=== PATIENT | male | born 1995 | race Caucasian/White ===

== ENCOUNTER 2024-03-19 23:13 | Emergency (ER) | payer SELFPAY ==
[2024-03-19 23:14] VITALS: BP 107/80; PULSE 79; RESP 18; TEMP 36.6; O2SAT 100; BMI 28.8
--- NOTE | 2024-03-19 23:38 | EDS_ITS ---
HPI History of Present Illness Chief Complaint: Complaint Informant: patient Narrative Narrative: Presents by EMS from home concerns for numbness and burning when he urinates. He states walking with mom at 5 PM outside 30 degree weather he felt paresthesias around his penis that time. He has been moderate. He took a shower. Urinated again and felt some numbness again. Denies penile discharge. Sexually active with fianc?. He states he has been screened for STIs it has been negative. Also intermittent gastritis symptoms seen by GI back in [place] he is on Pepcid. No black or bloody stools. Denies fevers. Prior similar symptoms: No PFSH PFSH Home Medications ?Medication ?Instructions ?Recorded ?Last Taken ?Type famotidine 20 mg tablet (Acid 20 mg PO BID 03/19/24 Unknown History Controller) phenazopyridine 200 mg tablet 200 mg PO TID #10 tabs 03/20/24 Unknown Rx (Pyridium) Allergy/AdvReac Type Severity Reaction Status Date / Time meloxicam Allergy Mild OTHER Verified 03/19/24 23:14 Social History Smoking Status: Current every day smoker tobacco type: cigars ROS ROS ED Constitutional Constitutional ED: Denies chills, fever(s) or sweats ENT ENT ED: Denies sore throat Cardiovascular Cardiovascular: Denies chest pain, leg edema, palpitations or racing heartbeat Respiratory/Chest Respiratory/Chest: Denies cough, dyspnea or dyspnea on exertion Gastrointestinal Gastrointestinal: Denies abdominal pain, diarrhea, nausea or vomiting Genitourinary Genitourinary ED: Reports dysuria and other Details: Denies penile discharge ; Denies hematuria or urinary frequency Musculoskeletal Musculoskeletal: Denies back pain, extremity pain or neck pain Integumentary Denies rash or wounds Neurologic Neurologic: Denies headache(s), paresthesias or weakness EXAM Physical Exam Const Vital Signs: 03/19/24 23:14 Temperature 97.9 F Temperature Source Temporal Pulse Rate 79 Respiratory Rate 18 Blood Pressure 107/80 Blood Pressure Mean 89 Pulse Ox 100 Oxygen Delivery Method Room Air Positive well nourished and well developed General Appearance ED: well developed and NAD HEENT Reports moist mucous membranes normocephalic and atraumatic Eyes General Eye ED: Yes normal appearance of both eyes Neck full ROM Chest Wall Chest: Negative for tenderness Resp normal respiratory effort and normal air movement Effort and Inspection: symmetric chest movement; Negative for respiratory distress Cardio regular rate, regular rhythm and no murmurs Peripheral Pulses: pulses 2+ throughout GI normal to inspection, nondistended, normoactive bowel sounds and non-tender Palpation: Negative for guarding or rebound tenderness present Narrative: No scrotal swelling or pain. No penile lesions. No discharge. Normal penile shaft no lesions no changes in color. Nontender. Extremity normal to inspection General Extremety ED: Negative for edema or tenderness General Extremity: Negative for edema Neuro oriented x3 and no sensory deficits noted Sensorium / Orientation: awake and alert Skin no rashes or lesions noted and no wounds MDM MDM MDM Narrative Medical decision making narrative: Interventions / MDM: Differential diagnosis: Urethritis, dysuria, hematuria Diagnosis considered but do not suspect: UTI however urine negative. STI however GC chlamydia negative. My EKG interpretation: N/A Imaging independently reviewed and interpreted by myself: N/A External documents reviewed: N/A Test considered but not ordered:N/A ED course: Nontoxic, no structural abnormalities on exam. Urine sent for UA and GC chlamydia with his symptoms. Urine with slight hematuria, no infection. GC chlamydia negative. Discussed results with the patient. He does have tobacco history. Discussed cancer and differential however young and there is no significant RBCs. He is referred to the PCP and urology as an outpatient. He started on Pyridium. All questions were answered. Re-evaluation: stable Disposition discussed with patient/family/significant other: Patient Case discussed with consulting clinician: N/A This note was generated with [employer] dictation software. It may contain incorrect words, spelling, and punctuation that were not noted in checking the note before signing. Lab Data Attestation: I reviewed the patient's lab results. Labs: Laboratory Results - last 24 hr 03/19/24 23:25 Urine Color Yellow Urine Clarity Clear Urine pH 6.5 Ur Specific [place] 1.010 Urine Protein Negative Urine Glucose (UA) Normal Urine Ketones Negative Urine Occult Blood 25 H Urine Nitrite Negative Urine Bilirubin Negative Urine Urobilinogen Normal Ur Leukocyte Esterase Negative Urine RBC 0 SEEN Urine WBC 0-5 SEEN Ur Squamous Epith Cells 0 SEEN Urine Bacteria RARE Urine Mucus 0 SEEN Discharge Plan Triage Chief Complaint: Complaint Other Complaint: Abd Pain ED Provider: Andreas Blount Dx/Rx/DC Orders Clinical Impression: Dysuria, Urethritis, Hematuria Instructions: Urethritis in Men, ED Hematuria Prescriptions: New phenazopyridine [Pyridium] 200 mg tablet 200 mg PO TID Qty: 10 0RF No Action famotidine [Acid Controller] 20 mg tablet 20 mg PO BID Primary Care Provider: Care Physician,No Primary Referrals: Kirill Lozada MD [Med Staff - Active Staff] - 1-2 Weeks Care Physician,No Primary [Primary Care Provider] - Susi Esparza DO [[facility]] - 1-2 Weeks Activity Restrictions/Additional Instructions: Urine negative for infection. Mild blood. GC chlamydia negative. Use medicine as needed to help with dysuria. Follow-up as given to you. Print Language: Spanish
[2024-03-19 23:40] LABS: Mucous, Urine 0 SEEN /hpf (<or=2+); Red Blood Cells-Urine 0 SEEN /hpf (0-5); Squamous Epithelial Cells - UA 0 SEEN /hpf (0-5)
[2024-03-20 00:21] LABS: Color, Urine Yellow (Yellow); Glucose, Dipstick Normal (Normal); Ketone-Dipstick Negative (Negative); Leukocyte Esterase-Dipstick Negative /ul (Negative); Nitrite-Dipstick Negative (Negative); Occult Blood-Urine 25 /ul (Negative); Protein-Dipstick Negative (Negative); Urine Bilirubin Dipstick Negative (Negative); Urine Clarity Clear (Clear); Urine Urobilinogen Normal (Normal); Urine pH 6.5 (5.0 - 8.0)
[2024-03-20 00:36] LABS: White Blood Cells 0-5 SEEN /hpf (0-5)
[2024-03-20 00:37] LABS: Bacteria RARE /hpf (None Seen)
[2024-03-20] MEDS: Phenazopyridine 95 MG Tablet 190 MG PO (01:46)
[2024-03-20 01:47] VITALS: BP 128/73; PULSE 68; RESP 17; TEMP 36.6; O2SAT 99
== END 2024-03-20 01:48 | disposition home or self-care (01) ==
PROVIDERS: Emergency Provider Emergency Medicine; Visit Provider Emergency Medicine
DX: N34.2 Other urethritis (principal); R31.9 Hematuria, unspecified; R30.0 Dysuria; F17.290 Nicotine dependence, other tobacco product, uncomplicated; Z79.899 Other long term (current) drug therapy
CPT/HCPCS: 81001; 87491; 87591; 99285

== ENCOUNTER 2024-03-29 16:43 | Emergency (ER) | payer MEDICAID, SELFPAY ==
[2024-03-29 16:44] VITALS: BP 128/107; PULSE 77; RESP 18; TEMP 36.6; O2SAT 98; BMI 28.9
[2024-03-29] MEDS: Famotidine 20 MG Tablet PO (18:41)
[2024-03-29] MEDS: Lidocaine 2% Viscous15 ML UDC 15 ML PO (18:41)
[2024-03-29] MEDS: Mag Hydrox/Al Hydrox/Simeth 30 ML UDC PO (18:41)
[2024-03-29 18:42] VITALS: PULSE 71; RESP 17; O2SAT 95
--- NOTE | 2024-03-29 18:43 | EX.ED.DYSGE1 ---
HPI <MARTIN Angulo - Last Filed: 03/29/24 20:45> History of Present Illness Chief Complaint: General Illness Narrative Narrative: Patient presenting today with multiple vague complaints. He has had intermittent epigastric and upper abdominal pain over the past year. He reports that he was diagnosed with gastritis and GERD. He went to [place] emergency department 2 days ago and was given prescriptions for Nexium and MiraLAX but his dog ate the prescriptions and he was not able to get them filled. He reports constipation over the last 2 but reports that he is passing gas. He denies history of bowel obstruction or previous abdominal surgery. He reports that he has been under a lot of stress after he and his girlfriend has custody of their son. He has had a lot of anxiety and reports intermittent tingling to his legs and hands. He reports occasional twitching to his left eye. He denies chest pain, fevers, chills, nausea, and vomiting. PFSH <MARTIN Angulo - Last Filed: 03/29/24 20:45> [facility] Home Medications ?Medication ?Instructions ?Recorded ?Last Taken ?Type famotidine 20 mg tablet (Acid 20 mg PO BID 03/19/24 Unknown History Controller) phenazopyridine 200 mg tablet 200 mg PO TID #10 tabs 03/20/24 Unknown Rx (Pyridium) pantoprazole 40 mg tablet,delayed 40 mg PO DAILY 14 days #14 tabs 03/29/24 Unknown Rx release (Protonix) polyethylene glycol 3350 17 17 g PO DAILY PRN constipation 03/29/24 Unknown Rx gram/dose oral powder (Miralax) #119 grams Allergy/AdvReac Type Severity Reaction Status Date / Time meloxicam Allergy Mild OTHER Verified 03/29/24 16:46 Social History Smoking Status: Current every day smoker tobacco type: cigars ROS <MARTIN Angulo - Last Filed: 03/29/24 20:45> ROS ED Constitutional Constitutional ED: Denies chills or fever(s) Eyes Eyes: Denies change in vision Cardiovascular Cardiovascular: Denies chest pain or palpitations Respiratory/Chest Respiratory/Chest: Denies cough or dyspnea Gastrointestinal Gastrointestinal: Reports abdominal pain and constipation; Denies diarrhea, nausea or vomiting Genitourinary Genitourinary ED: Denies dysuria, hematuria or urinary urgency Musculoskeletal Musculoskeletal: Denies arthralgias or myalgias Integumentary Denies rash Neurologic Neurologic: Reports paresthesias; Denies weakness Psychiatric Psychiatric: Reports anxiety; Denies suicidal ideation or suicidal thoughts EXAM <MARTIN Angulo - Last Filed: 03/29/24 20:45> Physical Exam Const Vital Signs: 03/29/24 16:44 03/29/24 18:09 03/29/24 18:42 Temperature 97.9 F Temperature Source Temporal Pulse Rate 77 71 Respiratory Rate 18 17 Respiratory Pattern Normal Blood Pressure 128/107 H Blood Pressure Mean 114 Pulse Ox 98 95 Oxygen Delivery Method Room Air Room Air 03/29/24 19:32 Temperature 97.7 F L Temperature Source Pulse Rate 71 Respiratory Rate 18 Respiratory Pattern Blood Pressure Blood Pressure Mean Pulse Ox 98 Oxygen Delivery Method Positive well nourished, well developed and no apparent distress General Appearance ED: well developed HEENT Reports normocephalic and head/scalp atraumatic Mouth ED: Yes moist mucous membranes normal Eyes PERRL and EOMs intact bilaterally Neck full ROM and supple Chest Wall inspection of chest normal Resp normal respiratory effort and clear to auscultation bilaterally Cardio regular rate and regular rhythm GI soft to palpation, non-tender, non-distended and no masses Palpation: Negative for guarding Back/Spine normal ROM and normal to inspection Extremity normal to inspection and full ROM Extremity Narrative: Sensation intact to the bilateral upper and lower extremities. Bilateral upper and lower extremities neurovascularly intact. Neuro oriented x3, CN's II-XII intact bilaterally, moves all extremities, no focal motor deficits and no sensory deficits noted Sensorium / Orientation: awake and alert Motor Exam: strength 5/5 throughout Psych mental status grossly normal and thought process normal Skin no rashes or lesions noted and no wounds <Rashi Cota MD - Last Filed: 03/29/24 21:20> Physical Exam Const Vital Signs: 03/29/24 16:44 03/29/24 18:09 03/29/24 18:42 Temperature 97.9 F Temperature Source Temporal Pulse Rate 77 71 Respiratory Rate 18 17 Respiratory Pattern Normal Blood Pressure 128/107 H Blood Pressure Mean 114 Pulse Ox 98 95 Oxygen Delivery Method Room Air Room Air 03/29/24 19:32 Temperature 97.7 F L Temperature Source Pulse Rate 71 Respiratory Rate 18 Respiratory Pattern Blood Pressure Blood Pressure Mean Pulse Ox 98 Oxygen Delivery Method MDM <MARTIN Angulo - Last Filed: 03/29/24 20:45> [facility] Narrative Medical decision making narrative: Patient presenting today with multiple vague symptoms that have been ongoing. He reports chronic upper abdominal pain with a history of GERD and gastritis. His pain today feels similar to this. His abdomen is soft and nontender on exam. He reports occasional tingling to his legs and hands, this has been ongoing for the past few days and he has been under a lot of stress after losing custody of his son and reports having a lot of anxiety. He denies HI, SI, hallucinations. He otherwise is well-appearing and in no acute distress. Labs were obtained, CBC, CMP, lipase are unremarkable. No electrolyte derangement to explain his paresthesias. I suspect this could be anxiety related but did recommend that he follow-up with his PCP for further evaluation of this. He does not have any urinary symptoms to indicate UTI or need for UA. Given his nonsurgical abdomen, I do not feel abdominal imaging is indicated. He was given a GI cocktail and Pepcid and on reexamination reports improvement of his symptoms. I will give him a prescription for Protonix and MiraLAX, I did refer him to Dr. Gamino. I also referred him to the [facility] so he can have a PCP. I recommended that he have close outpatient follow-up, return instructions discussed and patient discharged home in stable condition. Lab Data Attestation: I reviewed the patient's lab results. Labs: Laboratory Results - last 24 hr 03/29/24 18:13 WBC 11.0 RBC 5.49 Hgb 15.9 Hct 47.8 MCV 87.1 MCH 29.0 MCHC 33.3 RDW Std Deviation 38.9 RDW Coeff of Dann 12.1 Plt Count 285 MPV 10.8 Immature Gran % (Auto) 0.300 Neut % (Auto) 60.1 Lymph % (Auto) 31.2 Morris % (Auto) 6.6 Eos % (Auto) 1.3 Baso % (Auto) 0.5 Absolute Neuts (auto) 6.6 Absolute Lymphs (auto) 3.44 Nucleated RBC % 0 Sodium 142 Potassium 3.5 Chloride 106 Carbon Dioxide 29.0 Anion Gap 6 BUN 11 Creatinine 0.89 Estim Creat Clear Calc 130.90 Est GFR (MDRD) Af Amer 129 Est GFR (MDRD) Non-Af 106 BUN/Creatinine Ratio 12.3 Glucose 95 Calcium 9.8 Total Bilirubin 0.40 AST 8 L ALT 15 L Alkaline Phosphatase 75 Total Protein 7.5 Albumin 4.3 Globulin 3.2 Albumin/Globulin Ratio 1.3 Lipase 34 L Urine Color Cancelled Urine Clarity Cancelled Urine pH Cancelled Ur Specific [place] Cancelled U Specif Grav (Refrac) Cancelled Urine Protein Cancelled Urine Glucose (UA) Cancelled Urine Ketones Cancelled Urine Occult Blood Cancelled Urine Nitrite Cancelled Urine Bilirubin Cancelled Urine Urobilinogen Cancelled Ur Leukocyte Esterase Cancelled Urine RBC Cancelled Urine WBC Cancelled Ur Squamous Epith Cells Cancelled Ur Transition Epith Cell Cancelled Ur Renal Epithelial Cell Cancelled Calcium Oxalate Crystal Cancelled Uric Acid Crystals Cancelled Triple Phos Crystals Cancelled Other Crystals Cancelled Amorphous Sediment Cancelled Urine Bacteria Cancelled Hyaline Casts Cancelled Fine Granular Casts Cancelled Coarse Granular Casts Cancelled Waxy Casts Cancelled RBC Casts Cancelled WBC Casts Cancelled Urine Mucus Cancelled Urine Trichomonas Cancelled Urine Yeast Cancelled <Rashi Cota MD - Last Filed: 03/29/24 21:20> [facility] Lab Data Labs: Laboratory Results - last 24 hr 03/29/24 18:13 WBC 11.0 RBC 5.49 Hgb 15.9 Hct 47.8 MCV 87.1 MCH 29.0 MCHC 33.3 RDW Std Deviation 38.9 RDW Coeff of Dann 12.1 Plt Count 285 MPV 10.8 Immature Gran % (Auto) 0.300 Neut % (Auto) 60.1 Lymph % (Auto) 31.2 Morris % (Auto) 6.6 Eos % (Auto) 1.3 Baso % (Auto) 0.5 Absolute Neuts (auto) 6.6 Absolute Lymphs (auto) 3.44 Nucleated RBC % 0 Sodium 142 Potassium 3.5 Chloride 106 Carbon Dioxide 29.0 Anion Gap 6 BUN 11 Creatinine 0.89 Estim Creat Clear Calc 130.90 Est GFR (MDRD) Af Amer 129 Est GFR (MDRD) Non-Af 106 BUN/Creatinine Ratio 12.3 Glucose 95 Calcium 9.8 Total Bilirubin 0.40 AST 8 L ALT 15 L Alkaline Phosphatase 75 Total Protein 7.5 Albumin 4.3 Globulin 3.2 Albumin/Globulin Ratio 1.3 Lipase 34 L Urine Color Cancelled Urine Clarity Cancelled Urine pH Cancelled Ur Specific [place] Cancelled U Specif Grav (Refrac) Cancelled Urine Protein Cancelled Urine Glucose (UA) Cancelled Urine Ketones Cancelled Urine Occult Blood Cancelled Urine Nitrite Cancelled Urine Bilirubin Cancelled Urine Urobilinogen Cancelled Ur Leukocyte Esterase Cancelled Urine RBC Cancelled Urine WBC Cancelled Ur Squamous Epith Cells Cancelled Ur Transition Epith Cell Cancelled Ur Renal Epithelial Cell Cancelled Calcium Oxalate Crystal Cancelled Uric Acid Crystals Cancelled Triple Phos Crystals Cancelled Other Crystals Cancelled Amorphous Sediment Cancelled Urine Bacteria Cancelled Hyaline Casts Cancelled Fine Granular Casts Cancelled Coarse Granular Casts Cancelled Waxy Casts Cancelled RBC Casts Cancelled WBC Casts Cancelled Urine Mucus Cancelled Urine Trichomonas Cancelled Urine Yeast Cancelled Treatment and Re-Evaluation :: Dr. Cota: I have personally performed a face to face assessment of the patient and have reviewed the ONEIL Note. I performed a substantive portion of the visit including all aspects of the following. My jaeger findings include: History is epigastric pain, mild nausea. Numbness and tingling of hands and feet. Did not take meds for gastritis and GERD for the last 3 days. Exam is afebrile. Vital signs noted. Nontoxic-appearing. Cardiovascular examination reveals a regular rate and rhythm. Lungs are clear to auscultation bilaterally. Abdomen is soft and nontender with positive bowel sounds. No guarding or rebound. Neurological examination is nonfocal and nonlateralizing. Medical Decision Making: Differential diagnosis includes but not limited to gastritis versus GERD. Regarding the numbness and tingling of his hands, he did admit that he was under stress and it may be related to anxiety as well. Check labs. GI cocktail. Prescriptions for Protonix and MiraLAX. Follow-up gastroenterology. Discharge. Other additions or changes: [None] Discharge Plan Triage Chief Complaint: General Illness ED Midlevel Provider: Carrie Siddiqui ED Provider: Rashi Cota Dx/Rx/DC Orders Clinical Impression: Hx of gastroesophageal reflux (GERD), Gastritis, Paresthesia, Anxiety Instructions: ED GERD (Adult), ED Paraesthesias Prescriptions: New pantoprazole [Protonix] 40 mg tablet,delayed release (DR/EC) 40 mg PO DAILY 14 Days Qty: 14 0RF polyethylene glycol 3350 [Miralax] 17 gram/dose powder 17 g PO DAILY PRN (Reason: constipation) Qty: 119 0RF No Action famotidine [Acid Controller] 20 mg tablet 20 mg PO BID phenazopyridine [Pyridium] 200 mg tablet 200 mg PO TID Qty: 10 0RF Primary Care Provider: Care Physician,No Primary Referrals: Jose Gamino DO [Med Staff - Active Staff] - 1 Week Care Physician,No Primary [Primary Care Provider] - Activity Restrictions/Additional Instructions: Follow-up with Dr. Gamino. Print Language: Belarusian Disposition Disposition: Home, Self Care Discharge Date/Time: 03/29/24 19:46
[2024-03-29 18:46] LABS: Absolute Lymphocyte Count 3.44 X10^3/uL (0.83-4.51); Absolute Neutrophil Count 6.6 X10^3/uL (2.0-7.7); Basophil# 0.05 X10^3/uL; Basophil% 0.5 % (0-1); Eosinophil# 0.14 X10^3/uL; Eosinophils% 1.3 % (0-5); Hematocrit 47.8 % (40-54); Hemoglobin 15.9 g/dL (13.0-16.5); Lymphocyte # 3.44 X10^3/ul (0.83-4.51); Lymphocyte % 31.2 % (19-41); Mean Corp Hgb Conc 33.3 g/dL (32-36); Mean Corpuscular Volume 87.1 fL (80-94); Mean Platelet Vol. 10.8 fl (6.2-12.0); Monocyte# 0.73 X10^3/uL; Monocyte% 6.6 % (0-10); NRBC Flagged by Analyzer 0 % (0-5); Neutrophil # 6.64 X10^3/uL (2.7-7.7); Neutrophil % 60.1 % (47-70); Platelet Count 285 K/mm3 (150-450); RBC Distribution Width CV 12.1 % (11.6-14.6); RBC Distribution Width SD 38.9 fl (35.1-43.9); Red Blood Count 5.49 M/mm3 (4.6-6.2)
[2024-03-29 19:05] LABS: ALB/GLOB Ratio 1.3 RATIO (0.9-2.4); AST(SGOT) 8 U/L (15-37); Alanine Aminotransfer ALT/SGPT 15 U/L (16-61); Albumin, Serum 4.3 g/dL (3.2-5.0); Alkaline Phosphatase 75 U/L (45-117); Anion Gap 6 (5-15); BUN 11 mg/dL (7-18); BUN/Creat Ratio 12.3 RATIO (10-20); Calcium,Total 9.8 mg/dL (8.5-10.1); Chloride 106 mmol/L (98-107); Creatinine, Serum 0.89 mg/dL (0.70-1.30); EST Glomerular Filtration Rate 106 mL/min (>60); Est Glom Filt Rate - Afr Amer 129 mL/min (>60); Globulin 3.2 g/dL (2.2-4.2); Glucose 95 mg/dL (74-106); Lipase 34 U/L (73-393); Potassium 3.5 mmol/L (3.5-5.1); Protein, Total 7.5 g/dL (6.4-8.2); Sodium Level 142 mmol/L (136-145)
[2024-03-29 19:32] VITALS: PULSE 71; RESP 18; TEMP 36.5; O2SAT 98
== END 2024-03-29 19:46 | disposition home or self-care (01) ==
PROVIDERS: Physician Assistant; Emergency Provider Emergency Medicine; Visit Provider Emergency Medicine
DX: R20.2 Paresthesia of skin (principal); F41.9 Anxiety disorder, unspecified; R10.13 Epigastric pain; K59.00 Constipation, unspecified; K21.9 Gastro-esophageal reflux disease without esophagitis; F17.290 Nicotine dependence, other tobacco product, uncomplicated; Z79.899 Other long term (current) drug therapy; Z87.19 Personal history of other diseases of the digestive system
CPT/HCPCS: 80053; 83690; 85025; 99282; A4216